=== PATIENT | male | born 1955 | race Caucasian/White ===

== ENCOUNTER 2018-04-10 11:33 | Emergency (ER) | payer MEDICARE, MEDICAID ==
[2018-04-10 11:57] VITALS: BP 146/83
--- NOTE | 2018-04-10 12:39 | ED ---
Throat Pain/Nasal Congestion - HPI Summary HPI Summary: 62 yr old male with complaint of irritation to the left lower lip. He had a buccal mucosa graft taken last week from the left cheek, and grafted to urethra. The patient has no fever or chills. No other complaints. - History of Current Complaint Chief Complaint: UCSkin Time Seen by Provider: 04/10/18 11:59 - Allergies/Home Medications Allergies/Adverse Reactions: Allergies Allergy/AdvReac Type Severity Reaction Status Date / Time No Known Allergies Allergy Verified 04/10/18 11:51 Home Medications: Home Medications Docusate Sodium [Dulcolax Stool Softener] 100 mg PO DAILY 04/10/18 [History Confirmed 04/10/18] Enalapril(NF) [Enalapril (NF)] 20 mg PO DAILY 04/10/18 [History Confirmed ] FLUoxetine CAP* [Prozac CAP*] 20 mg PO DAILY 04/10/18 [History Confirmed ] Hydrocodone/Acetaminophen [Hydrocodone-Acetamin 5-325 mg] 1 each PO DAILY [History Confirmed 04/10/18] Levothyroxine TAB* [Synthroid 88 MCG TAB*] 88 mg PO DAILY 04/10/18 [History Confirmed 04/10/18] Nateglinide 60 mg PO DAILY 04/10/18 [History Confirmed 04/10/18] Omeprazole 20 mg PO DAILY 04/10/18 [History Confirmed 04/10/18] Oxybutynin Chloride 5 mg PO DAILY 04/10/18 [History Confirmed 04/10/18] Paliperidone Palmitate [Invega Trinza] 1 each INJ MONTHLY 04/10/18 [History Confirmed 04/10/18] Rosuvastatin Calcium 5 mg PO DAILY 04/10/18 [History Confirmed 04/10/18] Tamsulosin CAP* [Flomax CAP*] 0.4 mg PO DAILY 04/10/18 [History Confirmed ] amLODIPine TAB* [Norvasc 5 mg TAB*] 2.5 mg PO DAILY 04/10/18 [History Confirmed 04/10/18] hydroCHLOROthiazide [Hydrochlorothiazide] 12.5 mg PO DAILY 04/10/18 [History Confirmed 04/10/18] PMH/Surg Hx/FS Hx/Imm Hx Endocrine/Hematology History: Reports: Hx Diabetes - Surgical History Surgery Procedure, Year, and Place: SKIN GRAFT FROM LIP TO GENITALS. HERNIA Infectious Disease History: No Infectious Disease History: Denies: Traveled Outside the [place] in Last 30 Days - Family History Known Family History: Positive: None - Social History Alcohol Use: None Substance Use Type: Reports: None Smoking Status (MU): Former Smoker Review of Systems Constitutional: Negative Positive: Other - left lower lip irritation. All Other Systems Reviewed And Are Negative: Yes Physical Exam Triage Information Reviewed: Yes Vital Signs On Initial Exam: Initial Vitals Temp Pulse Resp BP Pulse Ox 98.1 F 73 15 146/83 100 04/10/18 11:48 04/10/18 11:48 04/10/18 11:48 04/10/18 11:48 04/10/18 11:48 Vital Signs Reviewed: Yes Appearance: Positive: Well-Appearing, No Pain Distress Skin: Positive: Warm Eyes: Positive: EOMI ENT: Positive: TMs normal, Other - left lower lip with mild excoriation to the left lower outside lip. The inside of the lip with appearance of burn that is superficial. No cellulitis, no drainage. No STS. Neck: Positive: Nontender Respiratory/Lung Sounds: Positive: Clear to Auscultation, Breath Sounds Present Cardiovascular: Positive: RRR. Negative: Murmur Abdomen Description: Negative: Distended Musculoskeletal: Positive: Strength/ROM Intact Neurological: Positive: Sensory/Motor Intact, Alert, Oriented to Person Place, Time, CN Intact II-III Psychiatric: Positive: Normal - [place] Com[place] Scale Best Eye Response: 4 - Spontaneous Best Motor Response: 6 - Obeys Commands Best Verbal Response: 5 - Oriented Coma Scale Total: 15 Diagnostics - Vital Signs Vital Signs Temp Pulse Resp BP Pulse Ox 04/10/18 11:48 98.1 F 73 15 146/83 100 - Laboratory Lab Statement: Any lab studies that have been ordered have been reviewed, and results considered in the medical decision making process. EENT Course/Dx - Course Course Of Treatment: Dr Scales, Urologist contacted in [facility], and case discussed. Dr Scales feels this is a typical post op reaction to sutures placed , and He recommends petroluem jelly to the outside surface, and that the patient use the mouth wash he was given. Follow up with him as soon as possible. - Diagnoses Provider Diagnoses: Dermatitis Discharge - Sign-Out/Discharge Documenting (check all that apply): Patient Departure All imaging exams completed and their final reports reviewed: No Studies - Discharge Plan Condition: Good Disposition: HOME Patient Education Materials: Dermatitis (ED) Referrals: Machelle Diaz MD [Primary Care Provider] - 2 Days Gael Scales MD [Medical Doctor] - 1 Day (Call Dr Scales at [phone] to be seen by him as soon as possible. ) Additional Instructions: apply petroleum jelly to the outside of your lip area. Call Dr Scales for any worsening symptoms. - Billing Disposition and Condition Condition: GOOD Disposition: Home
== END 2018-04-10 12:57 | disposition home or self-care (01) ==
LOC: UCCORT 11:33
DX: L30.9 Dermatitis, unspecified (principal); Z87.891 Personal history of nicotine dependence; E11.9 Type 2 diabetes mellitus without complications; Z98.890 Other specified postprocedural states
CPT/HCPCS: 99201; G0463